=== PATIENT | male | born 1980 ===

== ENCOUNTER 2017-05-30 16:16 | Observation (INO) | payer MEDICAID, OTHER ==
[2017-05-30 17:10] VITALS: BMI 25.8
[2017-05-30] MEDS ORDERED: Sodium Chloride 0.9% 1,000 ML IV ONE (18:14)
[2017-05-30] MEDS ORDERED: Lidocaine 1% Inj (20ml) INFIL ONE (18:17)
--- NOTE | 2017-05-30 18:22 | C.PDOC ---
History Of Present Illness 37 y/o M c/o an erection that has been present for approx 12 hours. He states this is the third time this happens to him in the past 3 weeks, the last two times the erection resolved after 6 hours. Patient is currently on Clonidine, Singulair, and Prednisone. He denies drug use or injection into the penis, penile discharge, testicular pain, fever, chills, dysuria/hematuria. Time Seen by Provider: 05/30/17 17:25 Chief Complaint (Nursing): Male Genitourinary History Per: Patient History/Exam Limitations: no limitations Onset/Duration Of Symptoms: Hrs (12), Waxing/Waning Current Symptoms Are (Timing): Still Present Severity: Moderate Associated Symptoms: denies: Fever, Chills Recent travel outside of the [place]: No Additional History Per: Patient Past Medical History Reviewed: Historical Data, Nursing Documentation, Vital Signs Vital Signs: Last Vital Signs Temp 97.9 F 05/30/17 20:05 Pulse 88 05/30/17 20:05 Resp 16 05/30/17 20:05 BP 112/73 05/30/17 20:05 Pulse Ox 100 05/30/17 20:27 - Medical History PMH: Asthma - [facility] Procedures TETANUS TOXOID ADMINIST (11/19/14) Family History: States: No Known Family Hx - Social History Hx Tobacco Use: Yes Hx Alcohol Use: Yes Hx Substance Use: No - Immunization History Hx Tetanus Toxoid Vaccination: No Hx Influenza Vaccination: No Hx Pneumococcal Vaccination: No Review Of Systems Except As Marked, All Systems Reviewed And Found Negative. Constitutional: Negative for: Fever, Chills Genitourinary: Positive for: Other (Penile erection). Negative for: Dysuria, Incontinence, Penile Discharge, Scrotal Pain Physical Exam - Physical Exam Appears: Non-toxic, No Acute Distress, Other (Anxious appearing, in mild discomfort) Skin: Warm, Dry Oral Mucosa: Moist Cardiovascular: Rhythm Regular Respiratory: Normal Breath Sounds, No Rales, No Rhonchi, No Wheezing Gastrointestinal/Abdominal: Normal Exam, Bowel Sounds, Soft, No Tenderness Back: No CVA Tenderness Male Genital: No Testicular Tenderness, No Testicular Swelling, No Scrotal Swelling, No Other (Penile erection. No erythema, penile lesions, or discharge) Neurological/Psych: Oriented x3 ED Course And Treatment O2 Sat by Pulse Oximetry: 100 (RA) Pulse Ox Interpretation: Normal Progress Note: Patient given PO Xanax. IV line inserted, patient given IV NS bolus and IV morphine. 6:10PM - Discussed with Dr. Perez, he will come in to see/drain patient. 6:30PM- Dr. Santo Perez in ED to see patient. 6:42pm- During exam by Dr. Santo Perez, he states patient became less erect. He recommends PO Sudafed and observation in the ER. 8:14PM- Patient reassessed, still mildly erect but significantly improved since he came to ED. Discussed patient with Dr. Santo Perez, he agrees patient can be discharged home, follow up with him in the office. Disposition Counseled Patient/Family Regarding: Diagnosis, Need For Followup - Disposition Disposition: HOME/ ROUTINE Disposition Time: 20:15 Condition: STABLE - Clinical Impression Clinical Impression: Priapism - Scribe Statement The provider has reviewed the documentation as recorded by the Scribe Miriam ivan All medical record entries made by the Eunibsanto were at my direction and personally dictated by me. I have reviewed the chart and agree that the record accurately reflects my personal performance of the history, physical exam, medical decision making, and the department course for this patient. I have also personally directed, reviewed, and agree with the discharge instructions and disposition.
[2017-05-30] MEDS ORDERED: Sodium Chloride 0.9% 1,000 ML ONE (18:30)
[2017-05-30] MEDS ORDERED: Lidocaine 1% Inj (20ml) ONE (18:38)
[2017-05-30] MEDS ORDERED: PHENYLEPHRINE IC ONE (18:45)
[2017-05-30] MEDS ORDERED: SODIUM CHLORIDE 0.9% IC ONE (18:45)
[2017-05-30 20:07] VITALS: BP 112/73; PULSE 88; RESP 16; TEMP 97.9
[2017-05-30 20:12] VITALS: O2SAT 100
== END 2017-05-30 20:14 | disposition home or self-care (01) ==
LOC: C.ER 16:16 → C.9OBSV 18:42
PROVIDERS: ADMIT Emergency Medicine; ATTEND Emergency Medicine
DX: N48.30 Priapism, unspecified (principal); J45.909 Unspecified asthma, uncomplicated
CPT/HCPCS: 96361; 96374; 99283; G0378; J2270; J7040

== ENCOUNTER 2017-06-05 09:21 | Observation (INO) | payer MEDICAID, OTHER ==
[2017-06-05 09:36] VITALS: BMI 26.6
--- NOTE | 2017-06-05 10:27 | C.PDOC ---
History Of Present Illness 37 y/o male presents to ED wit recurrent priapism since last night. Patient states this is the 4th episode in 3 weeks and was seen at ED for similar symptoms on 05/30/17 but symptoms resolved without intervention. NPO since 12 pm yesterday. Patient denies urinary symptoms, fever, chills, n/v/d or any other complaints at this time. RECUR PRIAPISM SINCE LAST NIGHT. PS THIS IS 4TH EPISODE IN 3 WEEKS. ER EVAL BUT SPONT RESOLVED WO INTERVENTION. NO OTHER ASSOC SX. NPO SINCE 12 PM YEST EXAM MOD DIST NONTOXIC ABD NEG +UNCIRCUM +PRIAPISM W GEN TEND. FORESKIN RETRACTABLE. NO RASH, DC REMAINDER NEG Time Seen by Provider: 06/05/17 10:15 Chief Complaint (Nursing): Male Genitourinary History Per: Patient History/Exam Limitations: no limitations Onset/Duration Of Symptoms: Days Current Symptoms Are (Timing): Still Present Past Medical History Reviewed: Historical Data, Nursing Documentation, Vital Signs Vital Signs: Last Vital Signs Temp 97.9 F 06/05/17 15:49 Pulse 73 06/05/17 15:49 Resp 20 06/05/17 15:49 BP 107/71 06/05/17 15:49 Pulse Ox 99 06/05/17 16:57 - Medical History PMH: Asthma - [facility] Procedures TETANUS TOXOID ADMINIST (11/19/14) Family History: States: No Known Family Hx - Social History Hx Tobacco Use: Yes Hx Alcohol Use: Yes Hx Substance Use: No - Immunization History Hx Tetanus Toxoid Vaccination: No Hx Influenza Vaccination: No Hx Pneumococcal Vaccination: No Review Of Systems Except As Marked, All Systems Reviewed And Found Negative. Constitutional: Negative for: Fever, Chills Gastrointestinal: Negative for: Nausea, Vomiting, Diarrhea Genitourinary: Negative for: Dysuria, Frequency, Incontinence, Penile Discharge Skin: Negative for: Rash Neurological: Negative for: Weakness, Numbness Physical Exam - Physical Exam Appears: Non-toxic, Other (moderate distress) Skin: Normal Color, Warm, Dry, No Rash Eye(s): bilateral: Normal Inspection Oral Mucosa: Moist Gastrointestinal/Abdominal: Soft, No Tenderness, No Guarding, No Rebound Male Genital: No Testicular Tenderness, No Testicular Swelling, Other (+ uncircumcised, +priapism with general tenderness to foreskin retractable, no rash, no discharge) Extremity: Normal ROM, Capillary Refill (<2 seconds), No Deformity Neurological/Psych: Oriented x3, Normal Speech, Normal Cognition, Normal Motor, Normal Sensation ED Course And Treatment O2 Sat by Pulse Oximetry: 99 (RA) Pulse Ox Interpretation: Normal Progress - Data Reviewed Data Reviewed: Old records ED OBSERVATION Discharge: Yes Date of observation admission: 06/05/17 Time of observation admission: 09:30 - Observation admission statement Patient is being placed in observation because:: PRIAPISM - Goals of Observation Goals of observation are:: EVAL, SX IMPROVE - Progress Note Progress Note: 06/05/17 10:31 PRIOR ER EVAL BY DR MANJARREZ FROM PRIOR ER VISIT D/W DR Santo MANJARREZ WILL EVAL IN ER 06/05/17 13:27 EXAM UNCH. RECUR PAIN. PENDING EVAL PT REQUESTING XANAX AND SUDAFED "LIKE THEY DID LAST TIME" 06/05/17 14:47 D/W DR MANJARREZ WILL BE IN ER TO EVAL 06/05/17 16:37 EXAM UNCH. PENDING EVAL 06/05/17 16:56 called and will come down from OR to evaluate patient 06/05/17 18:20 CLEARED FOR DC BY DR MANJARREZ SP BEDSIDE DRAINAGE. WRAP PLACED BY IFEANY[facility] BARBO[facility] OFFICE Disposition Counseled Patient/Family Regarding: Studies Performed, Diagnosis, Need For Followup, Rx Given - Disposition Disposition: HOME/ ROUTINE Disposition Time: 18:20 Condition: IMPROVED - Clinical Impression Clinical Impression: Priapism - PA / ELEVATOR RUNNER / Resident Statement MD/DO has examined the patient and agrees with the treatment plan. - Scribe Statement The provider has reviewed the documentation as recorded by the Ruth Ann Gonzalez All medical record entries made by the Ruth Ann were at my direction and personally dictated by me. I have reviewed the chart and agree that the record accurately reflects my personal performance of the history, physical exam, medical decision making, and the department course for this patient. I have also personally directed, reviewed, and agree with the discharge instructions and disposition.
[2017-06-05] MEDS ORDERED: Morphine 4 MG/ML VIAL ONE ×2 (10:55→17:19)
[2017-06-05] MEDS ORDERED: Lidocaine 1% Inj (20ml) INFIL STA (14:54)
[2017-06-05] MEDS ORDERED: Phenylephrine 1 MG in Sodium Chloride 0.9% 10 ML IV ONE (15:00)
[2017-06-05] MEDS ORDERED: Lidocaine 1% Inj (20ml) ONE (15:35)
[2017-06-05 16:37] VITALS: O2SAT 99
[2017-06-05 19:01] VITALS: BP 112/69; PULSE 72; RESP 18; TEMP 98.2
== END 2017-06-05 18:21 | disposition home or self-care (01) ==
LOC: C.ER 09:21 → SUPCPDRO 09:21 → C.9OBSV 09:30
PROVIDERS: ADMIT Emergency Medicine; ATTEND Emergency Medicine
DX: N48.30 Priapism, unspecified (principal); Z87.891 Personal history of nicotine dependence; J45.909 Unspecified asthma, uncomplicated
CPT/HCPCS: 82948; 96374; 96375; 96376; 99285; G0378; J2270; J2370

== ENCOUNTER 2017-06-06 10:36 | Emergency (ER) | payer MEDICAID ==
[2017-06-06 10:36] VITALS: BMI 26.6
[2017-06-06 10:45] VITALS: BP 106/69; PULSE 104; RESP 18; TEMP 98.6; O2SAT 100
--- NOTE | 2017-06-06 14:22 | C.PDOC ---
History Of Present Illness 37 yr old male presents to the ER with complaints of persistent priapism for the past 2 days. Patient was seen yesterday in ER for similar complaint and had it drained by urology. Patient states he remvoed the bandages this morning. Patient denies fever, chills, chest pain, SOB, nausea, vomiting, abdominal pain , dysiuria, hematuria, weakness or numbness. Time Seen by Provider: 06/06/17 11:07 Chief Complaint (Nursing): Male Genitourinary History Per: Patient History/Exam Limitations: no limitations Onset/Duration Of Symptoms: Days (2) Current Symptoms Are (Timing): Still Present Past Medical History Reviewed: Historical Data, Nursing Documentation, Vital Signs Vital Signs: Last Vital Signs Temp 98.6 F 06/06/17 10:43 Pulse 104 H 06/06/17 10:43 Resp 18 06/06/17 10:43 BP 106/69 06/06/17 10:43 Pulse Ox 100 06/06/17 14:27 - Medical History PMH: Asthma - [facility] Procedures TETANUS TOXOID ADMINIST (11/19/14) Family History: States: No Known Family Hx - Social History Hx Tobacco Use: Yes Hx Alcohol Use: Yes Hx Substance Use: No - Immunization History Hx Tetanus Toxoid Vaccination: No Hx Influenza Vaccination: No Hx Pneumococcal Vaccination: No Review Of Systems Except As Marked, All Systems Reviewed And Found Negative. Constitutional: Negative for: Fever, Chills Cardiovascular: Negative for: Chest Pain Respiratory: Negative for: Shortness of Breath Gastrointestinal: Negative for: Nausea, Vomiting, Abdominal Pain Genitourinary: Positive for: Other ((+) Persistent priapism.). Negative for: Dysuria, Hematuria Neurological: Negative for: Weakness, Numbness Physical Exam - Physical Exam Appears: Non-toxic, No Acute Distress Skin: Warm, Dry, No Rash Head: Atraumatic, Normacephalic Oral Mucosa: Moist Chest: Symmetrical, No Tenderness Cardiovascular: Rhythm Regular, No Murmur Respiratory: Normal Breath Sounds, No Rales, No Rhonchi, No Stridor, No Wheezing Gastrointestinal/Abdominal: Normal Exam, Soft, No Tenderness, No Guarding, No Rebound Male Genital: Other ((+) Partially erected penis. Uncircumcised. ) Extremity: Normal ROM, No Swelling Neurological/Psych: Oriented x3, Normal Speech, Normal Motor ED Course And Treatment O2 Sat by Pulse Oximetry: 100 (RA) Pulse Ox Interpretation: Normal Progress Note: Dr. Clovis Sagastume saw the patient yesterday in ER and reqeust to have patient dischagred and sent straight to his office. Patient understands the plan. Disposition - Disposition Referrals: Andrew Perez MD [Staff Provider] - Disposition: HOME/ ROUTINE Disposition Time: 11:50 Condition: STABLE Additional Instructions: Thank you for letting us take care of you today. Your provider was Dr. Dexter. You were treated for persistent erection. The emergency medical care you received today was directed at your acute symptoms. If you were prescribed any medication, please fill it and take as directed. It may take several days for your symptoms to resolve. Return to the Emergency Department if your symptoms worsen, do not improve, or if you have any other problems. Please contact your doctor or call one of the physicians/clinics you have been referred to that are listed on the Patient Visit Information form that is included in your discharge packet. Bring any paperwork you were given at discharge with you along with any medications you are taking to your follow up visit. Our treatment cannot replace ongoing medical care by a primary care provider (PCP) outside of the emergency department. Thank you for allowing the [facility] team to be part of your care today. GO TO DR. PEREZ'S OFFICE RIGHT NOW FOR FOLLOW UP. Instructions: Li (ED) Forms: IT MOVES IT ([place]ese) - Clinical Impression Clinical Impression: Priapism - Scribe Statement The provider has reviewed the documentation as recorded by the Ruth Ann Gill Provider Attestation: All medical record entries made by the Eunibmaximiliano were at my direction and personally dictated by me. I have reviewed the chart and agree that the record accurately reflects my personal performance of the history, physical exam, medical decision making, and the department course for this patient. I have also personally directed, reviewed, and agree with the discharge instructions and disposition.
== END 2017-06-06 12:11 | disposition home or self-care (01) ==
LOC: C.ER 10:36
DX: N48.30 Priapism, unspecified (principal)